=== PATIENT | male | born 1960 | race Caucasian/White ===

== ENCOUNTER 2021-02-01 08:35 | Outpatient (REF) | payer OTHER, SELFPAY ==
--- NOTE | ~2021-02-01 | US_ITS ---
EXAMINATION: US VENOUS ULTRASOUND WITH DOPPLER LOWER EXTREMITY, LEFT CLINICAL INFORMATION: History of DVT, left gastroc vein. COMPARISON: None TECHNIQUE: Ultrasound of the deep veins is performed from the hip to the calf with compression sonography and color and pulse Doppler assessment. Spectral analysis with color-flow imaging is performed. FINDINGS: There is normal venous compression and respiratory variation and augmented flow. The visualized common femoral vein, superficial femoral vein, profunda femoral vein, popliteal vein, and the trifurcation region shows no evidence of deep venous thrombosis. Adjacent to the medial joint space there is a small fluid collection measuring approximately 1.8 x 2.2 x 1.6 cm in size which may represent a small effusion/meniscal cyst. No popliteal artery aneurysm identified. US/US venous duplex LE LT IMPRESSION: No acute DVT demonstrated in the left lower extremity. Probable small effusion/meniscal cyst medial aspect of the knee.
== END 2021-02-01 08:36 | disposition home or self-care (01) ==
LOC: HO.US 08:35
PROVIDERS: PCP Internal Medicine; Visit Provider Internal Medicine
DX: I82.402 Acute embolism and thrombosis of unspecified deep veins of left lower extremity (principal)
CPT/HCPCS: 93971

== ENCOUNTER 2021-03-08 09:38 | Outpatient (REF) | payer OTHER, SELFPAY ==
--- NOTE | ~2021-03-08 | XR_ITS ---
EXAMINATION: XR HIP, LEFT CLINICAL INFORMATION: Left hip pain. COMPARISON: None TECHNIQUE: AP view of the pelvis as well as AP and frog-leg lateral views of the left hip. FINDINGS: No acute fracture or dislocation. Mild joint space narrowing with tiny marginal osteophytes at the left hip. No osseous erosion. Phleboliths within the pelvis. XR/XR hip LT w [id number] IMPRESSION: Mild left hip osteoarthritis.
== END 2021-03-08 09:39 | disposition home or self-care (01) ==
LOC: HO.HMGCX 09:38
PROVIDERS: PCP Internal Medicine; Visit Provider Physician Assistant Medical
DX: M25.552 Pain in left hip (principal)
CPT/HCPCS: 73502

== ENCOUNTER 2021-08-31 08:40 | Outpatient (REF) | payer OTHER, SELFPAY ==
--- NOTE | ~2021-08-31 | CT_ITS ---
EXAMINATION: CT FEMUR WITHOUT CONTRAST, LEFT CLINICAL INFORMATION: Left hip and knee pain. COMPARISON: Left hip radiographs 03/08/2021. TECHNIQUE: A noncontrast CT of the left femur is performed with sagittal and coronal reformats. This CT examination was performed using dose optimization techniques as appropriate, variously including the following: *Automated exposure control *Adjustment of mA and/or kV according to patient size (this includes techniques or standardized protocols for targeted exams where dose is matched to indication/reason for exam; i.e. extremities or head) *Use of iterative reconstruction technique DLP: 528 mGy-cm FINDINGS: There is [id number] left hip osteoarthritis which has progressed since the radiographs. This consists of joint space narrowing which is most prominent anterosuperiorly, where there are degenerative cysts of the acetabulum, degenerative sclerosis, and small marginal osteophytes. There is no fracture. No adenopathy. Postsurgical changes of the proximal tibia with lateral fracture fixation plate and multiple screws. Incomplete healing with residual fracture lucency at the posterior aspect of the dominant transverse fracture. Evidence of ACL reconstruction. Given the osteophytes narrowing the intercondylar notch and orientation of the graft tunnels, complete tearing of the graft is suspected. [id number] secondary osteoarthritis of the medial and lateral compartments. CT/CT femur LT wo con IMPRESSION: [id number] left hip osteoarthritis which has progressed since radiographs dated 03/08/2021. No acute abnormality. Incomplete healing of the proximal tibial fracture fixation with [id number] secondary osteoarthritis in the medial and lateral compartments. Although not directly imaged with CT, the ACL graft is suspected to be completely torn.
== END 2021-08-31 08:41 | disposition home or self-care (01) ==
LOC: HO.CT 08:40
PROVIDERS: Visit Provider Internal Medicine
DX: M25.552 Pain in left hip (principal)
CPT/HCPCS: 73700